=== PATIENT | male | born 1935 | race Caucasian/White ===

== ENCOUNTER → 2019-12-23 | Outpatient (CLI) | payer MEDICARE ==
[~2019-12-23] MED LIST: AZIT500 PO; Bactrim Ds Tab1 EACH PO; Calcium Ascorb500 MG PO; Cialis5 MG PO; Cipro500 MG PO; ELIQUIS5 MG PO; FURO20 PO; GLIM4 PO; Lisinopril2.5 MG PO; METO50 PO; Metformin HCl500 MG PO; PROSTATE HEALT1 EACH PO; SITA100T2 PO; TAMS.4ER PO; Viagra100 MG PO; Vitamin D2000 UNIT PO
== END | disposition home or self-care (01) ==
LOC: LAB SHORT 10:34 → PLD 10:34
DX: D48.5 Neoplasm of uncertain behavior of skin (principal)
CPT/HCPCS: 88305

== ENCOUNTER → 2023-01-31 | Outpatient (CLI) | payer MEDICARE | LOC: LAB 19:14 → LAB SHORT 19:14 | DX: Z48.817 Encounter for surgical aftercare following surgery on the skin and subcutaneous tissue (principal) | CPT/HCPCS: 87070; 87205 ==

== ENCOUNTER → 2024-10-23 | Outpatient (CLI) | payer MEDICARE | END | disposition home or self-care (01) | LOC: LAB SHORT 08:09 → LAB 08:09 | DX: L57.8 Other skin changes due to chronic exposure to nonionizing radiation (principal); D49.2 Neoplasm of unspecified behavior of bone, soft tissue, and skin | CPT/HCPCS: 88305 ==